=== PATIENT | male | born 1975 | race Caucasian/White ===

== ENCOUNTER 2019-02-01 22:06 | Emergency (ER) | payer MEDICARE ==
[2019-02-01] MEDS ORDERED: solu-MEDROL 125 MG IV ONE (22:44)
[2019-02-01] MEDS ORDERED: ROCEPHIN 1 Gm-D5w 50 ml Bag** 1 G/50 ML IVPB IV STA (22:44)
[2019-02-01] MEDS ORDERED: HYDROCODONE-ACETAMIN 2.5-108/5 ML SOLUTION PO STA (22:45)
[2019-02-01] MEDS ORDERED: HYDROCODONE-ACETAMIN 2.5-108/5 ML SOLUTION ONE (22:57)
[2019-02-01] MEDS ORDERED: ROCEPHIN 1 Gm-D5w 50 ml Bag** 1 G/50 ML IVPB IV ONE (22:57)
[2019-02-01 23:07] VITALS: PULSE 68; O2SAT 97
--- NOTE | 2019-02-01 23:23 | ERPHSYRPT ---
- History of Present Illness Time Seen by Provider: 02/01/19 22:35 Source: patient, EMS Exam Limitations: no limitations Patient Subjective Stated Complaint: pt to ER by EMS for SOB. pt off and on sick x 1 month. pt has been on abx. pt has cough, productive cough. Triage Nursing Assessment: pt to ER with complaints of SOB/cough. pt states he has been sick off and on x 1 month. currently finished abx last week. productive cough. Physician History: 43 y/o white male has had coughing sx for 6 weeks. pt states he has asthma and diabetes. he states he was dx with these after a sig exposure to black mold. pt is on daily inhalers. 3 weeks ago pt was seen by dr. pressley. he was placed on antibx and steroids but finished a week ago or so. sx worsening over last 2 to 3 days. pt does not recall which antibx he was on. Timing/Duration: week(s) (6) Cough Quality/Degree: mild, dry cough Possible Cause: frequent episodes, chronic episodes Modifying Factors: Improves With: albuterol inhaler, coughing Associated Symptoms: cough, No fever, No chills, No sore throat Allergies/Adverse Reactions: No Known Drug Allergies Allergy (Unverified 02/01/19 22:17) Home Medications: Albuterol Sulfate [Ventolin Hfa] 1 spray INTRANASAL DAILY 02/01/19 [History] Divalproex Sodium ER 250 mg [Depakote EXTENDED RELEASE 250 MG] 250 mg PO DAILY 02/01/19 [History] Metformin HCl Xr 500 mg [Glucophage XR 500 MG] 500 mg PO DAILY 02/01/19 [ History] PANTOPRAZOLE 40 mg Tablet [Protonix 40MG Tablet] 40 mg PO DAILY 02/01/19 [ History] Ranitidine HCl 150 mg PO DAILY 02/01/19 [History] Umeclidinium Brm/Vilanterol Tr [Anoro Ellipta 62.5-25 Mcg INH] 1 spray INTRANASAL DAILY 02/01/19 [History] Hx Tetanus, Diphtheria Vaccination/Date Given: No Hx Influenza Vaccination/Date Given: No Hx Pneumococcal Vaccination/Date Given: No Immunizations Up to Date: Yes - Review of Systems Constitutional: No Symptoms Eyes: No Symptoms Ears, Nose, & Throat: No Symptoms Respiratory: Cough Cardiac: No Symptoms, No Chest Pain, No Palpitations Abdominal/Gastrointestinal: No Symptoms, No Abdominal Pain, No Nausea, No Vomiting, No Diarrhea Genitourinary Symptoms: No Symptoms Musculoskeletal: No Symptoms Skin: No Symptoms Neurological: No Symptoms Psychological: No Symptoms Endocrine: No Symptoms Hematologic/Lymphatic: No Symptoms Immunological/Allergic: No Symptoms All Other Systems: Reviewed and Negative - Past Medical History Pertinent Past Medical History: Yes Neurological History: Seizures ENT History: No Pertinent History Cardiac History: No Pertinent History Respiratory History: Asthma Endocrine Medical History: Diabetes Type II Musculoskeletal History: No Pertinent History GI Medical History: No Pertinent History History: No Pertinent History Psycho-Social History: No Pertinent History Male Reproductive Disorders: No Pertinent History Other Medical History: marfans syndrome - Past Surgical History Past Surgical History: No Neuro Surgical History: No Pertinent History Cardiac: No Pertinent History Respiratory: No Pertinent History Gastrointestinal: No Pertinent History Genitourinary: No Pertinent History Musculoskeletal: No Pertinent History Male Surgical History: No Pertinent History - Social History Smoking Status: Never smoker Exposure to second hand smoke: Yes Drug Use: none Patient Lives Alone: Yes - Nursing Vital Signs Nursing Vital Signs: Initial Vital Signs Temperature 98.0 F 02/01/19 22:07 Pulse Rate 69 02/01/19 22:07 Respiratory Rate 19 02/01/19 22:07 Blood Pressure 139/83 02/01/19 22:07 O2 Sat by Pulse Oximetry 96 02/01/19 22:07 Pain Scale Pain Intensity 5 - Physical Exam General Appearance: no apparent distress, alert, anxiety Eye Exam: PERRL/EOMI Ears, Nose, Throat Exam: normal ENT inspection, moist mucous membranes Neck Exam: normal inspection, non-tender, supple, full range of motion Respiratory Exam: normal breath sounds, lungs clear, airway intact, No chest tenderness, No respiratory distress Cardiovascular Exam: regular rate/rhythm, normal heart sounds, normal peripheral pulses Gastrointestinal/Abdomen Exam: soft, normal bowel sounds, No tenderness Rectal Exam: not done Back Exam: normal inspection, normal range of motion, No CVA tenderness, No vertebral tenderness Extremity Exam: normal inspection, normal range of motion, pelvis stable Neurologic Exam: alert, oriented x 3, cooperative, 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, normal mood/affect, nml cerebellar function, nml station & gait Skin Exam: normal color, warm, dry Lymphatic Exam: No adenopathy SpO2 Interpretation: normal SpO2: 97 O2 Delivery: Room Air Ordered Tests: Active Orders 24 hr Category Date Time Status CHEST 1 VIEW (PORTABLE) Stat Exams 02/01/19 22:44 Taken Medication Summary Discontinued Medications Generic Name Dose Route Start Last Admin Trade Name Ilan PRN Reason Stop Dose Admin Hydrocodone Bitart/Acetaminophen 10 ml 02/01/19 22:45 02/01/19 22:58 Hydrocodone-Acetamin 2.5-108/5 Ml Solution PO 02/01/19 22:46 10 ml STAT STA Administration Hydrocodone Bitart/Acetaminophen Confirm 02/01/19 22:57 Hydrocodone-Acetamin 2.5-108/5 Ml Solution Administered 02/01/19 22:58 Dose 10 ml .ROUTE .STK-MED ONE Ceftriaxone Sodium/Dextrose 1 g in 50 mls @ 100 mls/hr 02/01/19 22:44 23:36 Rocephin 1 Gm-D5w 50 Ml Bag IV 02/01/19 23:13 Infused STAT STA Infusion Ceftriaxone Sodium/Dextrose Confirm 02/01/19 22:57 Rocephin 1 Gm-D5w 50 Ml Bag Administered 02/01/19 22:58 Dose 1 g in 50 mls @ ud IV .STK-MED ONE Methylprednisolone Sodium Succinate 125 mg 02/01/19 22:44 02/01/19 23:07 Solu-Medrol 125 Mg IV 02/01/19 22:45 Not Given STAT ONE - Progress Progress: improved Air Movement: good Progress Note: 02/01/19 23:43 cxr-no acute process Blood Culture(s) Obtained: No Antibiotics given: Yes Counseled pt/family regarding: diagnosis, need for follow-up, rad results - Departure Departure Disposition: Home Clinical Impression: Bronchitis Condition: Stable Critical Care Time: No Referrals: SHABBIR PRESSLEY MD [Primary Care Provider] - Additional Instructions: drink plenty of fluids. follow up with primary doctor for further management Prescriptions: Cefdinir 300 mg PO BID 7 Days #14 capsule Hydrocodone Bit/Acetaminophen [Hydrocodone-Acetaminophen Soln] 10 ml PO Q6H # 120 ml Prednisone 5 mg [Deltasone 5 mg] 5 mg PO TID #12 tablet
[2019-02-02 00:06] VITALS: BP 136/80
--- NOTE | 2019-02-02 09:22 | XRAY ---
Indication: Cough. Comparison: July 03, 2017. Portable chest again demonstrates normal heart and lungs. Bony thorax intact.
== END 2019-02-02 | disposition home or self-care (01) ==
LOC: ED 22:06
DX: J40 Bronchitis, not specified as acute or chronic (principal)
CPT/HCPCS: 36000; 71045; 96365; 99284; J0696; A9270-GY

== ENCOUNTER 2019-05-06 18:54 | Emergency (ER) | payer MEDICARE ==
[2019-05-06] MEDS ORDERED: Sodium Chloride 0.9% 1000 ML 1,000 ML ONE ×2 (19:05→19:40)
--- NOTE | 2019-05-06 19:33 | ERPHSYRPT ---
- History of Present Illness Time Seen by Provider: 05/06/19 19:15 Source: patient, EMS Exam Limitations: no limitations Patient Subjective Stated Complaint: "weakness in legs, dizziness" reported fall 10 min lpta. Triage Nursing Assessment: pt to ED by EMS c/o weakness, dizziness, shakiness, and fall 10 min lpta at home. denies hitting head, no LOC, no blood thinners. denies pain at this time. lung sounds clear and equal bilat, clear heart sounds , A&Ox3. ambulation weak for unknown amount of time, states worse tonight before fall. hx marfans syndrome, sees neurologist. pt has no other complaints at this time Physician History: This is a 43-year-old [id number] diabetic white male who has Marfan syndrome as well as seizure disorder. Today, the patient states that he was weak in the legs and actually fell. He denies fever. He woke up from a nap and felt that maybe his blood sugar was low although he did not get a value for it. Patient immediately drank orange juice. Patient did not hit his head. Patient denies chest pain he denies headache he denies abdominal pain. His primary concern is the weakness in both of his legs. Timing/Duration: today Severity: moderate Associated Symptoms: weakness (Primarily in bilateral lower extremities) Allergies/Adverse Reactions: No Known Drug Allergies Allergy (Verified 05/06/19 19:08) Home Medications: Albuterol Sulfate [Ventolin Hfa] 1 spray INTRANASAL DAILY 02/01/19 [History] Divalproex Sodium ER 250 mg [Depakote EXTENDED RELEASE 250 MG] 250 mg PO DAILY 02/01/19 [History] Metformin HCl Xr 500 mg [Glucophage XR 500 MG] 500 mg PO DAILY 02/01/19 [ History] PANTOPRAZOLE 40 mg Tablet [Protonix 40MG Tablet] 40 mg PO DAILY 02/01/19 [ History] Ranitidine HCl 150 mg PO DAILY 02/01/19 [History] Umeclidinium Brm/Vilanterol Tr [Anoro Ellipta 62.5-25 Mcg INH] 1 spray INTRANASAL DAILY 02/01/19 [History] Hx Tetanus, Diphtheria Vaccination/Date Given: No Hx Influenza Vaccination/Date Given: No Hx Pneumococcal Vaccination/Date Given: No Immunizations Up to Date: No - Review of Systems Constitutional: Weakness Eyes: No Symptoms Ears, Nose, & Throat: No Symptoms Respiratory: No Symptoms Cardiac: No Symptoms Abdominal/Gastrointestinal: No Symptoms Genitourinary Symptoms: No Symptoms Musculoskeletal: No Symptoms Skin: No Symptoms Neurological: Dizziness, Other (Bilateral lower extremity weakness) Endocrine: No Symptoms Hematologic/Lymphatic: No Symptoms Immunological/Allergic: No Symptoms All Other Systems: Reviewed and Negative - Past Medical History Pertinent Past Medical History: Yes Neurological History: Seizures ENT History: No Pertinent History Cardiac History: No Pertinent History Respiratory History: Asthma Endocrine Medical History: Diabetes Type II Musculoskeletal History: No Pertinent History GI Medical History: No Pertinent History History: No Pertinent History Psycho-Social History: No Pertinent History Male Reproductive Disorders: No Pertinent History Other Medical History: marfans syndrome - Past Surgical History Past Surgical History: No Neuro Surgical History: No Pertinent History Cardiac: No Pertinent History Respiratory: No Pertinent History Gastrointestinal: No Pertinent History Genitourinary: No Pertinent History Musculoskeletal: No Pertinent History Male Surgical History: No Pertinent History - Social History Smoking Status: Never smoker Exposure to second hand smoke: Yes Drug Use: none Patient Lives Alone: Yes - Nursing Vital Signs Nursing Vital Signs: Initial Vital Signs Temperature 97.8 F 05/06/19 18:59 Pain Scale Pain Intensity 0 - Physical Exam General Appearance: no apparent distress, alert, anxiety Eye Exam: PERRL/EOMI, eyes nml inspection Ears, Nose, Throat Exam: normal ENT inspection, moist mucous membranes Neck Exam: normal inspection, non-tender, supple, full range of motion Respiratory Exam: normal breath sounds, lungs clear, airway intact, No chest tenderness, No respiratory distress Cardiovascular Exam: regular rate/rhythm, normal heart sounds, normal peripheral pulses Gastrointestinal/Abdomen Exam: soft, normal bowel sounds, No tenderness Rectal Exam: not done Back Exam: normal inspection, normal range of motion, CVA tenderness Extremity Exam: normal inspection, normal range of motion, pelvis stable Neurologic Exam: alert, oriented x 3, cooperative, 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, normal mood/affect, nml cerebellar function, nml station & gait Skin Exam: normal color, warm, dry Lymphatic Exam: No adenopathy SpO2 Interpretation: normal O2 Delivery: Room Air - Course Nursing assessment & vital signs reviewed: Yes Ordered Tests: Active Orders 24 hr Category Date Time Status Business Systems Advisor STAT Care 05/06/19 19:35 Active IV Insertion STAT Care 05/06/19 19:34 Active Pulse Oximetry (ED) STAT Care 05/06/19 19:34 Active HEAD WITHOUT CONTRAST [CT] Stat Exams 05/06/19 19:35 Taken CBC W DIFF Stat Lab 05/06/19 20:00 Completed CMP Stat Lab 05/06/19 20:00 Completed MAGNESIUM Stat Lab 05/06/19 20:00 Completed Medication Summary Generic Name Dose Route Start Last Admin Trade Name Freq PRN Reason Stop Dose Admin Amoxicillin 500 mg 05/06/19 23:22 Amoxil 500 Mg PO 05/06/19 23:23 STAT ONE Discontinued Medications Generic Name Dose Route Start Last Admin Trade Name Freq PRN Reason Stop Dose Admin Sodium Chloride Confirm 05/06/19 19:05 Sodium Chloride 0.9% 1000 Ml Administered 05/06/19 19:06 Dose 1,000 mls @ ud .ROUTE .STK-MED ONE Sodium Chloride 1,000 mls @ 999 mls/hr 05/06/19 19:34 05/06/19 20:52 Sodium Chloride 0.9% 1000 Ml IV 05/06/19 20:34 Infused .Q1H1M STA Infusion Sodium Chloride Confirm 05/06/19 19:40 Sodium Chloride 0.9% 1000 Ml Administered 05/06/19 19:41 Dose 1,000 mls @ ud .ROUTE .STK-MED ONE Lab/Rad Data: Laboratory Result Diagrams 05/06/19 20:00 05/06/19 20:00 Laboratory Results 05/06/19 05/06/19 05/06/19 Range/Units 20:00 20:00 20:00 WBC (4.0-10.5) K/mm3 RBC (4.1-5.6) M/mm3 Hgb (12.5-18.0) gm/dl Hct (42-50) % MCV (78-100) fl MCH (26-32) pg MCHC (32-36) g/dl RDW (11.5-14.0) % Plt Count (150-450) K/mm3 MPV (7.5-11.0) fl Gran % (36.0-66.0) % Eos # (Auto) (0-0.5) Absolute Lymphs (auto) (1.0-4.6) Absolute Monos (auto) (0.0-1.3) Lymphocytes % (24.0-44.0) % Monocytes % (0.0-12.0) % Eosinophils % (0.00-5.0) % Basophils % (0.0-0.4) % Absolute Granulocytes (1.4-6.9) Basophils # (0-0.4) Sodium 138 (137-145) mmol/L Potassium 4.0 (3.5-5.1) mmol/L Chloride 101 (98-107) mmol/L Carbon Dioxide 29 (22-30) mmol/L Anion Gap 11.7 (5-15) MEQ/L BUN 18 (9-20) mg/dL Creatinine 1.05 (0.66-1.25) mg/dL Estimated GFR > 60.0 ML/MIN Glucose 290 H (74-106) mg/dL Hemoglobin A1c 11.22 H (4.5-6.0) % Calcium 8.8 (8.4-10.2) mg/dL Magnesium 2.1 (1.6-2.3) mg/dL Total Bilirubin 0.60 (0.2-1.3) mg/dL AST 33 (17-59) U/L ALT 40 (0-50) U/L Alkaline Phosphatase 133 H (38-126) U/L Serum Total Protein 7.4 (6.3-8.2) g/dL Albumin 4.2 (3.5-5.0) g/dL Valproic Acid < 10.0 L (50-100) ug/mL 05/06/19 Range/Units 20:00 WBC 5.8 (4.0-10.5) K/mm3 RBC 4.85 (4.1-5.6) M/mm3 Hgb 14.8 (12.5-18.0) gm/dl Hct 44.2 (42-50) % MCV 91.1 (78-100) fl MCH 30.5 (26-32) pg MCHC 33.5 (32-36) g/dl RDW 12.6 (11.5-14.0) % Plt Count 254 (150-450) K/mm3 MPV 10.9 (7.5-11.0) fl Gran % 55.7 (36.0-66.0) % Eos # (Auto) 0.10 (0-0.5) Absolute Lymphs (auto) 1.96 (1.0-4.6) Absolute Monos (auto) 0.45 (0.0-1.3) Lymphocytes % 33.9 (24.0-44.0) % Monocytes % 7.8 (0.0-12.0) % Eosinophils % 1.7 (0.00-5.0) % Basophils % 0.9 (0.0-0.4) % Absolute Granulocytes 3.22 (1.4-6.9) Basophils # 0.05 (0-0.4) Sodium (137-145) mmol/L Potassium (3.5-5.1) mmol/L Chloride (98-107) mmol/L Carbon Dioxide (22-30) mmol/L Anion Gap (5-15) MEQ/L BUN (9-20) mg/dL Creatinine (0.66-1.25) mg/dL Estimated GFR ML/MIN Glucose (74-106) mg/dL Hemoglobin A1c (4.5-6.0) % Calcium (8.4-10.2) mg/dL Magnesium (1.6-2.3) mg/dL Total Bilirubin (0.2-1.3) mg/dL AST (17-59) U/L ALT (0-50) U/L Alkaline Phosphatase (38-126) U/L Serum Total Protein (6.3-8.2) g/dL Albumin (3.5-5.0) g/dL Valproic Acid (50-100) ug/mL - Progress Progress: unchanged Progress Note: 05/06/19 23:24 CAT scan of the head reveals no acute intracranial process. Patient does have evidence of bilateral sinus disease Counseled pt/family regarding: lab results, diagnosis, need for follow-up, rad results - Departure Departure Disposition: Home Clinical Impression: Leg weakness, Sinusitis Condition: Stable Critical Care Time: No Referrals: SHABBIR PRESSLEY MD [Primary Care Provider] - Additional Instructions: Take all your medication as prescribed. Follow-up with your neurologist tomorrow by phone to discuss your leg weakness and your low valproic acid level and to arrange a follow-up appointment. Follow-up with your primary care provider to let them know your hemoglobin A1c was just over 11 Prescriptions: Amoxicillin 500 mg Cap [Amoxil 500 mg] 500 mg PO TID #30 capsule
[2019-05-06] MEDS ORDERED: Sodium Chloride 0.9% 1000 ML 1,000 ML IV STA (19:34)
[2019-05-06 20:19] LABS: Absolute Neutrophil Ct (ANC) 3.22 (1.4-6.9); BASOPHIL % 0.9 % (0.0-0.4); Basophil (Absolute #) 0.05 (0-0.4); Eosinophil % 1.7 % (0.00-5.0); Hematocrit 44.2 % (42-50); Hemoglobin 14.8 gm/dl (12.5-18.0); Lymphocyte (Absolute #) 1.96 (1.0-4.6); Lymphocytes % 33.9 % (24.0-44.0); Mean Cell Volume 91.1 fl (78-100); Mean Corpuscular Hemoglobin 30.5 pg (26-32); Mean Corpuscular Hgb Concent. 33.5 g/dl (32-36); Mean Platelet Volume 10.9 fl (7.5-11.0); Monocyte (Absolute #) 0.45 (0.0-1.3); Monocytes % 7.8 % (0.0-12.0); Neutrophil % 55.7 % (36.0-66.0); Platelet Count 254 K/mm3 (150-450); Red Blood Count 4.85 M/mm3 (4.1-5.6); Red Cell Distribution Width 12.6 % (11.5-14.0); White Blood Count 5.8 K/mm3 (4.0-10.5)
[2019-05-06 20:21] LABS: ALBUMIN 4.2 g/dL (3.5-5.0); ALKALINE PHOSPHATASE 133 U/L (38-126); ANION GAP 11.7 MEQ/L (5-15); BLOOD UREA NITROGEN 18 mg/dL (9-20); CHLORIDE 101 mmol/L (98-107); Calcium 8.8 mg/dL (8.4-10.2); Carbon Dioxide 29 mmol/L (22-30); Creatinine 1 1.05 mg/dL (0.66-1.25); Glucose 290 mg/dL (74-106); MAGNESIUM 2.1 mg/dL (1.6-2.3); SGOT/AST 33 U/L (17-59); SGPT/ALT 40 U/L (0-50); SODIUM 138 mmol/L (137-145); Total Protein 7.4 g/dL (6.3-8.2)
[2019-05-06] MEDS ORDERED: AMOXIL 500 MG PO ONE (23:22)
[2019-05-06] MEDS ORDERED: AMOXIL 500 MG ONE (23:30)
[2019-05-06 23:41] VITALS: BP 126/95; PULSE 67; O2SAT 97
--- NOTE | 2019-05-07 09:02 | XRAY ---
Exam: CT of the head without IV contrast from 05/06/2019. CTDI: 53.92 mGy. Comparison: None. Indication: 44-year-old male fell and has bilateral lower extremity weakness. Technique: Non-IV contrast axial images were obtained through the brain. Reconstructed coronal and sagittal images were created and reviewed. Findings: The ventricles appear of normal size and configuration. No focal mass effect or midline shift is seen. I see no evidence of acute intracranial bleed or abnormal extra-axial fluid collection. The valderrama matter-white matter interfaces appear unremarkable. No low attenuation territorial infarct is seen. The cortical sulci and basilar cisterns appear unremarkable. The calvarium of the skull appears intact. A couple lobular soft tissue densities are seen at the inferior margin of the right maxillary sinus which likely represent retention cysts or polyps. I also note some mild scattered mucosal thickening within the maxillary sinuses, right slightly greater than left. No air-fluid levels are seen. The remainder of the paranasal sinuses appears unremarkable. The globes of each eye and orbital contents appear unremarkable. Mastoid air cells appear clear. No gross abnormality of the middle ear cavities is seen. Impression: 1. Mild chronic bilateral maxillary sinus disease, right greater than left. No air-fluid levels are seen. 2. No acute intracranial bleed or other acute intracranial process is seen.
== END 2019-05-06 23:41 | disposition home or self-care (01) ==
LOC: ED 18:54
DX: M62.81 Muscle weakness (generalized) (principal); J32.9 Chronic sinusitis, unspecified; E11.9 Type 2 diabetes mellitus without complications; Z79.4 Long term (current) use of insulin; Z79.899 Other long term (current) drug therapy
CPT/HCPCS: 36000; 36415; 70450; 80053; 80164; 83036; 83735; 85025; 93041; 94760; 96360; 99284; A9270-GY

== ENCOUNTER 2019-06-13 18:45 | Emergency (ER) | payer MEDICARE ==
[2019-06-13] MEDS ORDERED: Sodium Chloride 0.9% 1000 ML 1,000 ML IV STA (19:04)
--- NOTE | 2019-06-13 19:13 | ERPHSYRPT ---
- History of Present Illness Time Seen by Provider: 06/13/19 19:04 Source: patient, EMS Exam Limitations: no limitations Patient Subjective Stated Complaint: Pt had a seizure and was found on the ground, pt had a tonic clonic seizure today, last seizure approx 1 month ago Triage Nursing Assessment: Pt brought in by EMS, pt found laying on the ground, vitals wnl, pt appears normal at this time, answers questions correctly, no difficulties with strength, no difficulties with speech, rates pain in his chest as 5/10 Physician History: 44yo male with hx of SZ and heart rhythm issues presents via EMS for SZ activity. Was found on ground. No incontinence or tongue biting. Positive postictal state. Also c/o CP which has been recurrent for him lately. Waiting for holter monitor via mail to wear. Also waiting to see intensive care medicine specialist. Apparently his HR goes too low. No c/o pain at this time. he said he knew he was going to have SZ so he went to the restroom to urinate because he hates to be incontinent with a SZ event. Last Sz was one month ago. Compliant with Keppra but states it usually "li right through me" Stress is usually the cause of his SZ. Denies any recent fever or illness prior to this event. Timing/Duration: today Severity: severe Character of Deficits: none Deficits: no difficulties Baseline/Normal Cognition: alert oriented x 3 Current Cognition: alert oriented x 3 Baseline Gait: walks w/o assistance Associated Symptoms: confusion, seizures Allergies/Adverse Reactions: No Known Drug Allergies Allergy (Verified 06/13/19 18:59) Home Medications: Albuterol Sulfate [Ventolin Hfa] 1 spray INTRANASAL DAILY 02/01/19 [History] Divalproex Sodium ER 250 mg [Depakote EXTENDED RELEASE 250 MG] 250 mg PO DAILY 02/01/19 [History] Metformin HCl Xr 500 mg [Glucophage XR 500 MG] 500 mg PO DAILY 02/01/19 [ History] PANTOPRAZOLE 40 mg Tablet [Protonix 40MG Tablet] 40 mg PO DAILY 02/01/19 [ History] Ranitidine HCl 150 mg PO DAILY 02/01/19 [History] Umeclidinium Brm/Vilanterol Tr [Anoro Ellipta 62.5-25 Mcg INH] 1 spray INTRANASAL DAILY 02/01/19 [History] Hx Tetanus, Diphtheria Vaccination/Date Given: No Hx Influenza Vaccination/Date Given: No Hx Pneumococcal Vaccination/Date Given: No Travel Risk - International Travel Have you traveled outside of the country in past 3 weeks: No Have you or anyone close to you been diagnosed with or: No Do your reside in a community with a known COVID-19 case?: Yes If Yes where:: [place] - Coronavirus Screening Has patient experienced Coronavirus symptoms: No - Review of Systems Constitutional: No Fever, No Chills Eyes: No Symptoms Ears, Nose, & Throat: No Symptoms Respiratory: No Cough, No Dyspnea Cardiac: Chest Pain, Palpitations, No Edema, No Syncope, No Orthopnea, No PND Abdominal/Gastrointestinal: No Abdominal Pain, No Nausea, No Vomiting, No Diarrhea Genitourinary Symptoms: No Dysuria Musculoskeletal: No Back Pain, No Neck Pain Skin: No Rash Neurological: Seizure, No Dizziness, No Focal Weakness, No Sensory Changes Psychological: No Symptoms Endocrine: No Symptoms All Other Systems: Reviewed and Negative - Past Medical History Pertinent Past Medical History: Yes Neurological History: Seizures ENT History: No Pertinent History Cardiac History: No Pertinent History Respiratory History: Asthma Endocrine Medical History: Diabetes Type II Musculoskeletal History: No Pertinent History GI Medical History: No Pertinent History History: No Pertinent History Psycho-Social History: No Pertinent History Male Reproductive Disorders: No Pertinent History Other Medical History: marfans syndrome - Past Surgical History Past Surgical History: No Neuro Surgical History: No Pertinent History Cardiac: No Pertinent History Respiratory: No Pertinent History Gastrointestinal: No Pertinent History Genitourinary: No Pertinent History Musculoskeletal: No Pertinent History Male Surgical History: No Pertinent History - Social History Smoking Status: Former smoker Exposure to second hand smoke: No Drug Use: none Patient Lives Alone: Yes - Nursing Vital Signs Nursing Vital Signs: Initial Vital Signs Temperature 99.4 F 06/13/19 18:47 Pulse Rate 92 H 06/13/19 18:47 Blood Pressure 120/88 06/13/19 18:47 O2 Sat by Pulse Oximetry 97 06/13/19 18:47 Pain Scale Pain Intensity 7 - [place] Coma Scale Best Eye Response (Anna): (4) open spontaneously Best Verbal Response (Anna): (5) oriented Best Motor Response (Anna): (6) obeys commands [place] Total: 15 - Physical Exam General Appearance: no apparent distress, alert Eye Exam: bilateral eye: PERRL, EOMI Ears, Nose, Throat Exam: normal ENT inspection, moist mucous membranes Neck Exam: normal inspection, non-tender, supple Respiratory: normal breath sounds, lungs clear, airway intact, No respiratory distress Cardiovascular: regular rate/rhythm, No edema Gastrointestinal: soft, No tenderness, No distention Back Exam: normal inspection Extremity Exam: normal inspection, No pedal edema Mental Status: alert, oriented x 3 programmer developer Exam: tongue midline Coordination/Gait: normal finger to nose, normal gait Skin Exam: normal color, warm, dry, No rash SpO2: 97 - Course Nursing assessment & vital signs reviewed: Yes EKG Interpreted by Me: Sinus Rhythm, Non-specific ST Changes - Radiology Exams Chest X-ray Interpretation: Reviewed by me, Negative Ordered Tests: Active Orders 24 hr Category Date Time Status EKG-ER Only STAT Care 06/13/19 19:04 Active IV Insertion STAT Care 06/13/19 19:04 Active CHEST 1 VIEW (PORTABLE) Stat Exams 06/13/19 19:05 Taken CBC W DIFF Stat Lab 06/13/19 19:22 Completed CMP Stat Lab 06/13/19 19:22 Completed ETHYL ALCOHOL Stat Lab 06/13/19 19:22 Completed TROPONIN Stat Lab 06/13/19 19:22 Completed UA W/RFX UR CULTURE Stat Lab 06/13/19 19:59 Completed Urine Triage Profile Stat Lab 06/13/19 19:59 Completed Medication Summary Discontinued Medications Generic Name Dose Route Start Last Admin Trade Name Ilan PRN Reason Stop Dose Admin Sodium Chloride 1,000 mls @ 999 mls/hr 06/13/19 19:04 06/13/19 19:27 Sodium Chloride 0.9% 1000 Ml IV 06/13/19 20:04 999 mls/hr .Q1H1M STA Administration Sodium Chloride Confirm 06/13/19 19:24 Sodium Chloride 0.9% 1000 Ml Administered 06/13/19 19:25 Dose 1,000 mls @ ud .ROUTE .STK-MED ONE Lab/Rad Data: Laboratory Result Diagrams 06/13/19 19:22 06/13/19 19:22 Laboratory Results 06/13/19 06/13/19 06/13/19 Range/Units 19:59 19:59 19:22 WBC (4.0-10.5) K/mm3 RBC (4.1-5.6) M/mm3 Hgb (12.5-18.0) gm/dl Hct (42-50) % MCV (78-100) fl MCH (26-32) pg MCHC (32-36) g/dl RDW (11.5-14.0) % Plt Count (150-450) K/mm3 MPV (7.5-11.0) fl Gran % (36.0-66.0) % Eos # (Auto) (0-0.5) Absolute Lymphs (auto) (1.0-4.6) Absolute Monos (auto) (0.0-1.3) Lymphocytes % (24.0-44.0) % Monocytes % (0.0-12.0) % Eosinophils % (0.00-5.0) % Basophils % (0.0-0.4) % Absolute Granulocytes (1.4-6.9) Basophils # (0-0.4) Sodium (137-145) mmol/L Potassium (3.5-5.1) mmol/L Chloride (98-107) mmol/L Carbon Dioxide (22-30) mmol/L Anion Gap (5-15) MEQ/L BUN (9-20) mg/dL Creatinine (0.66-1.25) mg/dL Estimated GFR ML/MIN Glucose (74-106) mg/dL Calcium (8.4-10.2) mg/dL Total Bilirubin (0.2-1.3) mg/dL AST (17-59) U/L ALT (0-50) U/L Alkaline Phosphatase (38-126) U/L Troponin I (0.000-0.034) ng/mL Serum Total Protein (6.3-8.2) g/dL Albumin (3.5-5.0) g/dL Urine Color YELLOW (YELLOW) Urine Appearance CLEAR (CLEAR) Urine pH 6.0 (5-6) Ur Specific [place] 1.012 (1.005-1.025) Urine Protein NEGATIVE (Negative) Urine Ketones NEGATIVE (NEGATIVE) Urine Blood NEGATIVE (0-5) Catarino/ul Urine Nitrite NEGATIVE (NEGATIVE) Urine Bilirubin NEGATIVE (NEGATIVE) Urine Urobilinogen NEGATIVE (0-1) mg/dL Ur Leukocyte Esterase NEGATIVE (NEGATIVE) Urine WBC (Auto) NONE (0-5) /HPF Urine RBC (Auto) NONE SEEN (0-2) /HPF U Epithel Cells (Auto) NONE (FEW) /HPF Urine Bacteria (Auto) NONE SEEN (NEGATIVE) /HPF Urine Mucus (Auto) SLIGHT (NEGATIVE) /HPF Urine Culture Reflexed NO (NO) Urine Glucose NEGATIVE (NEGATIVE) mg/dL Urine Opiates Level NEGATIVE (NEGATIVE) Ur Methadone NEGATIVE (NEGATIVE) Urine Barbiturates NEGATIVE (NEGATIVE) Ur Phencyclidine (PCP) NEGATIVE (NEGATIVE) Urine Amphetamine NEGATIVE (NEGATIVE) U Benzodiazepine Level NEGATIVE (NEGATIVE) Urine Cocaine NEGATIVE (NEGATIVE) Urine Marijuana (THC) NEGATIVE (NEGATIVE) Ethyl Alcohol < 10 (0-10) mg/dL 06/13/19 06/13/19 06/13/19 Range/Units 19:22 19:22 19:22 WBC 6.8 (4.0-10.5) K/mm3 RBC 4.85 (4.1-5.6) M/mm3 Hgb 15.0 (12.5-18.0) gm/dl Hct 43.2 (42-50) % MCV 89.1 (78-100) fl MCH 30.9 (26-32) pg MCHC 34.7 (32-36) g/dl RDW 12.5 (11.5-14.0) % Plt Count 193 (150-450) K/mm3 MPV 10.0 (7.5-11.0) fl Gran % 47.5 (36.0-66.0) % Eos # (Auto) 0.04 (0-0.5) Absolute Lymphs (auto) 2.96 (1.0-4.6) Absolute Monos (auto) 0.51 (0.0-1.3) Lymphocytes % 43.5 (24.0-44.0) % Monocytes % 7.5 (0.0-12.0) % Eosinophils % 0.6 (0.00-5.0) % Basophils % 0.9 (0.0-0.4) % Absolute Granulocytes 3.23 (1.4-6.9) Basophils # 0.06 (0-0.4) Sodium 142 (137-145) mmol/L Potassium 3.6 (3.5-5.1) mmol/L Chloride 99 (98-107) mmol/L Carbon Dioxide 31 H (22-30) mmol/L Anion Gap 16.6 H (5-15) MEQ/L BUN 17 (9-20) mg/dL Creatinine 1.30 H (0.66-1.25) mg/dL Estimated GFR > 60.0 ML/MIN Glucose 143 H (74-106) mg/dL Calcium 10.0 (8.4-10.2) mg/dL Total Bilirubin 0.70 (0.2-1.3) mg/dL AST 39 (17-59) U/L ALT 36 (0-50) U/L Alkaline Phosphatase 79 (38-126) U/L Troponin I < 0.012 (0.000-0.034) ng/mL Serum Total Protein 8.0 (6.3-8.2) g/dL Albumin 4.8 (3.5-5.0) g/dL Urine Color (YELLOW) Urine Appearance (CLEAR) Urine pH (5-6) Ur Specific [place] (1.005-1.025) Urine Protein (Negative) Urine Ketones (NEGATIVE) Urine Blood (0-5) Catarino/ul Urine Nitrite (NEGATIVE) Urine Bilirubin (NEGATIVE) Urine Urobilinogen (0-1) mg/dL Ur Leukocyte Esterase (NEGATIVE) Urine WBC (Auto) (0-5) /HPF Urine RBC (Auto) (0-2) /HPF U Epithel Cells (Auto) (FEW) /HPF Urine Bacteria (Auto) (NEGATIVE) /HPF Urine Mucus (Auto) (NEGATIVE) /HPF Urine Culture Reflexed (NO) Urine Glucose (NEGATIVE) mg/dL Urine Opiates Level (NEGATIVE) Ur Methadone (NEGATIVE) Urine Barbiturates (NEGATIVE) Ur Phencyclidine (PCP) (NEGATIVE) Urine Amphetamine (NEGATIVE) U Benzodiazepine Level (NEGATIVE) Urine Cocaine (NEGATIVE) Urine Marijuana (THC) (NEGATIVE) Ethyl Alcohol (0-10) mg/dL - Progress Progress: improved Progress Note: 06/13/19 20:32 Pt stable. work up for possible causes for his SZ. For the most part, I could not find any source but he finally did admit to not being able to sleep last night due to worrying about his CP. No alcohol or drug use. He was not much help in terms of how he is treated for breakthrough Szs in the past. Will not get keppra level back today. He is okay with 500mg keppra IV dose. Will give toradol for his CP for it seems more muscular since it worsens with movement. No other sxs though like SOB , diaphoresis or coughs. Will advise close follow up and to continue his home meds. Also advised sleep and rest. Counseled pt/family regarding: lab results, diagnosis, need for follow-up - Departure Departure Disposition: Home Clinical Impression: Breakthrough seizure Condition: Stable Critical Care Time: No Referrals: SHABBIR PRESSLEY MD [Primary Care Provider] - Follow Up with PCP/3 days Instructions: Seizures, Adult (DC) Additional Instructions: Monitor symptoms closely. Proper sleep and rest. Continue with home meds. Follow up with PCP for further care. Return to ER if worse.
[2019-06-13] MEDS ORDERED: Sodium Chloride 0.9% 1000 ML 1,000 ML ONE (19:24)
[2019-06-13 19:26] LABS: Absolute Neutrophil Ct (ANC) 3.23 (1.4-6.9); BASOPHIL % 0.9 % (0.0-0.4); Basophil (Absolute #) 0.06 (0-0.4); Eosinophil % 0.6 % (0.00-5.0); Eosinophil (Absolute #) 0.04 (0-0.5); Hematocrit 43.2 % (42-50); Lymphocyte (Absolute #) 2.96 (1.0-4.6); Lymphocytes % 43.5 % (24.0-44.0); Mean Cell Volume 89.1 fl (78-100); Mean Corpuscular Hemoglobin 30.9 pg (26-32); Mean Corpuscular Hgb Concent. 34.7 g/dl (32-36); Monocyte (Absolute #) 0.51 (0.0-1.3); Monocytes % 7.5 % (0.0-12.0); Neutrophil % 47.5 % (36.0-66.0); Platelet Count 193 K/mm3 (150-450); Red Blood Count 4.85 M/mm3 (4.1-5.6); Red Cell Distribution Width 12.5 % (11.5-14.0); White Blood Count 6.8 K/mm3 (4.0-10.5)
[2019-06-13 19:42] LABS: ALBUMIN 4.8 g/dL (3.5-5.0); ALKALINE PHOSPHATASE 79 U/L (38-126); ANION GAP 16.6 MEQ/L (5-15); BLOOD UREA NITROGEN 17 mg/dL (9-20); CHLORIDE 99 mmol/L (98-107); Carbon Dioxide 31 mmol/L (22-30); Glucose 143 mg/dL (74-106); Potassium 3.6 mmol/L (3.5-5.1); SGOT/AST 39 U/L (17-59); SGPT/ALT 36 U/L (0-50); SODIUM 142 mmol/L (137-145)
[2019-06-13 19:58] VITALS: PULSE 79; O2SAT 97
[2019-06-13 20:04] LABS: Appearance CLEAR (CLEAR); Bilirubin NEGATIVE (NEGATIVE); Blood NEGATIVE Ery/ul (0-5); Glucose NEGATIVE (NEGATIVE); Ketones NEGATIVE (NEGATIVE); Leukocyte Esterase NEGATIVE (NEGATIVE); Mucus SLIGHT /HPF (NEGATIVE); Nitrite NEGATIVE (NEGATIVE); Protein,Urine Dip NEGATIVE (Negative); Specific Gravity 1.012 (1.005-1.025); Urobilinogen NEGATIVE mg/dL (0-1)
[2019-06-13 20:12] LABS: Bacteria NONE SEEN /HPF (NEGATIVE); RBC NONE SEEN /HPF (0-2)
[2019-06-13 20:19] LABS: Amphetamine,Urine NEGATIVE (NEGATIVE); Barbiturate,Urine NEGATIVE (NEGATIVE); Benzodiazepine,Urine NEGATIVE (NEGATIVE); Cocaine,Urine NEGATIVE (NEGATIVE); Methadone,Urine NEGATIVE (NEGATIVE); Opiate,Urine NEGATIVE (NEGATIVE); PCP,Urine NEGATIVE (NEGATIVE); THC,Urine NEGATIVE (NEGATIVE)
[2019-06-13] MEDS ORDERED: TORAdol 30 mg Injection IV ONE (20:31)
[2019-06-13] MEDS ORDERED: Keppra 500 MG/5 ML*** 500 MG in D5w 100ML Mini Bag 100 ML 100 ML IV ONE (20:32)
[2019-06-13] MEDS ORDERED: TORAdol 30 mg Injection ONE (20:37)
[2019-06-13] MEDS ORDERED: Keppra 500 MG/5 ML ONE (20:37)
[2019-06-13] MEDS ORDERED: D5w 100ML Mini Bag 100 ML 100 ML IV ONE (20:38)
--- NOTE | 2019-06-13 21:05 | XRAY ---
Indication: Chest pain. Comparison: February 01, 2019. Portable chest again demonstrates normal heart and lungs. Bony thorax intact with old left clavicle fracture.
[2019-06-13 21:06] VITALS: BP 138/71
== END 2019-06-13 21:25 | disposition home or self-care (01) ==
LOC: ED 18:45
DX: G40.89 Other seizures (principal); E11.9 Type 2 diabetes mellitus without complications; J45.909 Unspecified asthma, uncomplicated; Z79.4 Long term (current) use of insulin; Z79.899 Other long term (current) drug therapy
CPT/HCPCS: 36000; 36415; 71045; 80053; 80177; 80307; 81001; 84484; 85025; 93005; 96360; 96365; 96374; 99284; G0480; J1885; J1953

== ENCOUNTER 2019-12-19 21:50 | Emergency (ER) | payer MEDICARE ==
--- NOTE | 2019-12-19 22:17 | ERPHSYRPT ---
- History of Present Illness Time Seen by Provider: 12/19/19 22:13 Historian: patient Exam Limitations: no limitations Physician History: pt developed abd pain N and rectal bleeding filling the toilet, without much localized rectal pain today. no dizziness, no blood thinners, - prior hx polyps removed and colitis untreated. abd mild diffuse tenderness without peritoneal signs - discussed risk and benefit of CT and pt wishes to proceed. Timing/Duration: today Activities at Onset: none Quality: cramping, fullness, pressure Abdominal Pain Onset Location: generalized abdomen Pain Radiation: no radiation Severity of Pain-Max: moderate Severity of Pain-Current: moderate Modifying Factors: Improves With: nothing Associated Symptoms: nausea Previous symptoms: no prior history Allergies/Adverse Reactions: No Known Drug Allergies Allergy (Verified 12/19/19 22:15) Home Medications: Albuterol Sulfate [Ventolin Hfa] 1 spray INTRANASAL DAILY 02/01/19 [History] Metformin HCl Xr 500 mg [Glucophage XR 500 MG] 500 mg PO DAILY 02/01/19 [History] PANTOPRAZOLE 40 mg Tablet [Protonix 40MG Tablet] 40 mg PO DAILY 02/01/19 [History] Ranitidine HCl 150 mg PO DAILY 02/01/19 [History] Umeclidinium Brm/Vilanterol Tr [Anoro Ellipta 62.5-25 Mcg INH] 1 spray INTRANASAL DAILY 02/01/19 [History] Amlodipine Besylate 2.5 mg PO DAILY 12/19/19 [History] Empagliflozin [Jardiance] 25 mg PO DAILY 12/19/19 [History] Rosuvastatin Calcium 20 mg PO HS 12/19/19 [History] levETIRAcetam [Levetiracetam] 750 mg PO BID 12/19/19 [History] Hx Tetanus, Diphtheria Vaccination/Date Given: No Hx Influenza Vaccination/Date Given: No Hx Pneumococcal Vaccination/Date Given: No - Review of Systems Constitutional: No Fever, No Chills Eyes: No Symptoms Ears, Nose, & Throat: No Symptoms Respiratory: No Cough, No Dyspnea Cardiac: No Chest Pain, No Edema, No Syncope Abdominal/Gastrointestinal: Abdominal Pain, Nausea, Hematochezia, Appetite Changes, No Vomiting, No Diarrhea Genitourinary Symptoms: No Dysuria Musculoskeletal: No Back Pain, No Neck Pain Skin: No Symptoms, No Rash Neurological: No Dizziness, No Focal Weakness, No Sensory Changes Psychological: No Symptoms Endocrine: No Symptoms Hematologic/Lymphatic: No Symptoms Immunological/Allergic: No Symptoms All Other Systems: Reviewed and Negative - Past Medical History Pertinent Past Medical History: Yes Neurological History: Seizures ENT History: No Pertinent History Cardiac History: No Pertinent History Respiratory History: Asthma Endocrine Medical History: Diabetes Type II Musculoskeletal History: No Pertinent History GI Medical History: No Pertinent History History: No Pertinent History Psycho-Social History: No Pertinent History Male Reproductive Disorders: No Pertinent History Other Medical History: marfans syndrome - Past Surgical History Past Surgical History: No Neuro Surgical History: No Pertinent History Cardiac: No Pertinent History Respiratory: No Pertinent History Gastrointestinal: No Pertinent History Genitourinary: No Pertinent History Musculoskeletal: No Pertinent History Male Surgical History: No Pertinent History - Social History Smoking Status: Former smoker Exposure to second hand smoke: No Drug Use: none Patient Lives Alone: Yes - Nursing Vital Signs Nursing Vital Signs: Initial Vital Signs Temperature 98.5 F 12/19/19 21:51 Pulse Rate 70 12/19/19 21:51 Respiratory Rate 18 12/19/19 21:51 Blood Pressure 142/95 12/19/19 21:51 O2 Sat by Pulse Oximetry 97 12/19/19 21:51 Pain Scale Pain Intensity 5 - Physical Exam General Appearance: no apparent distress, alert Eye Exam: PERRL/EOMI, eyes nml inspection Ears, Nose, Throat Exam: normal ENT inspection, pharynx normal, moist mucous membranes Neck Exam: normal inspection, non-tender, supple, full range of motion Respiratory Exam: normal breath sounds, lungs clear, No respiratory distress Cardiovascular Exam: regular rate/rhythm, normal heart sounds Gastrointestinal/Abdomen Exam: soft, tenderness (mild diffuse ), No mass, No guarding, No pulsatile mass, No rebound Rectal Exam: normal rectal tone, blood, No hemorrhoids Back Exam: normal inspection, normal range of motion, No CVA tenderness, No vertebral tenderness Extremity Exam: normal inspection, normal range of motion, pelvis stable Neurologic Exam: alert, oriented x 3, cooperative, normal mood/affect, nml cerebellar function, sensation nml, No motor deficits Skin Exam: normal color, warm, dry SpO2 Interpretation: normal SpO2: 97 O2 Delivery: Room Air - Course Nursing assessment & vital signs reviewed: Yes - CT Exams Abdomen/Pelvis CT Interpretation: Tele-radiologist Report, Normal Appendix, Other (no mucosal thickening) Ordered Tests: Active Orders 24 hr Category Date Time Status ABDOMEN AND PELVIS W/0 CONTRAS [CT] Stat Exams 12/19/19 22:18 Taken CBC W DIFF Stat Lab 12/19/19 22:30 Completed CMP Stat Lab 12/19/19 22:30 Completed LIPASE Stat Lab 12/19/19 22:30 Completed Lactic Acid Stat Lab 12/19/19 22:56 Completed UA W/RFX UR CULTURE Stat Lab 12/19/19 22:18 Uncollected Lab/Rad Data: Laboratory Result Diagrams 12/19/19 22:30 12/19/19 22:30 Laboratory Results 12/19/19 12/19/19 12/19/19 Range/Units 22:56 22:30 22:30 WBC 6.1 (4.0-10.5) K/mm3 RBC 5.23 (4.1-5.6) M/mm3 Hgb 16.0 (12.5-18.0) gm/dl Hct 48.0 (42-50) % MCV 91.8 (78-100) fl MCH 30.6 (26-32) pg MCHC 33.3 (32-36) g/dl RDW 12.7 (11.5-14.0) % Plt Count 220 (150-450) K/mm3 MPV 10.3 (7.5-11.0) fl Gran % 50.1 (36.0-66.0) % Eos # (Auto) 0.10 (0-0.5) Absolute Lymphs (auto) 2.47 (1.0-4.6) Absolute Monos (auto) 0.41 (0.0-1.3) Lymphocytes % 40.6 (24.0-44.0) % Monocytes % 6.7 (0.0-12.0) % Eosinophils % 1.6 (0.00-5.0) % Basophils % 1.0 (0.0-0.4) % Absolute Granulocytes 3.04 (1.4-6.9) Basophils # 0.06 (0-0.4) Sodium 137 (137-145) mmol/L Potassium 3.7 (3.5-5.1) mmol/L Chloride 102 (98-107) mmol/L Carbon Dioxide 28 (22-30) mmol/L Anion Gap 10.9 (5-15) MEQ/L BUN 20 (9-20) mg/dL Creatinine 1.29 H (0.66-1.25) mg/dL Estimated GFR > 60.0 ML/MIN Glucose 237 H (74-106) mg/dL Lactic Acid 1.3 (0.4-2.0) Calcium 9.8 (8.4-10.2) mg/dL Total Bilirubin 0.40 (0.2-1.3) mg/dL AST 40 (17-59) U/L ALT 37 (0-50) U/L Alkaline Phosphatase 76 (38-126) U/L Serum Total Protein 7.2 (6.3-8.2) g/dL Albumin 4.3 (3.5-5.0) g/dL Lipase 133 (23-300) U/L - Progress Progress: improved, re-examined Progress Note: 12/19/19 23:38 advised pt that we haVE NOT DETERMINED THE SOURCE FOR HIS SYMPTOMS AND HE NEEDS to see his PCP for further workup , including scoping and to return meantime if further bleeding or dizzy or other symptoms . 12/19/19 23:39 he prefers this to admission for obs at this time and has the capacity to make this choice. Counseled pt/family regarding: lab results, diagnosis, need for follow-up, rad results - Departure Departure Disposition: Home Clinical Impression: Rectal bleeding Condition: Good Critical Care Time: No Referrals: SHABBIR PRESSLEY MD [Primary Care Provider] - Instructions: Gastrointestinal Bleeding (DC), Bloody Stools, Adult (DC) Additional Instructions: followup with your dr to repeat colonoscopy and workup- we have not found the source fo r the bleeding . return meantime if any dizziness or furhter bleeding or other concerns. followup with your dr also to recheck your blood pressure which was a little elevated.
[2019-12-19 22:48] LABS: Absolute Neutrophil Ct (ANC) 3.04 (1.4-6.9); Basophil (Absolute #) 0.06 (0-0.4); Eosinophil % 1.6 % (0.00-5.0); Lymphocyte (Absolute #) 2.47 (1.0-4.6); Lymphocytes % 40.6 % (24.0-44.0); Mean Cell Volume 91.8 fl (78-100); Mean Corpuscular Hemoglobin 30.6 pg (26-32); Mean Corpuscular Hgb Concent. 33.3 g/dl (32-36); Mean Platelet Volume 10.3 fl (7.5-11.0); Monocyte (Absolute #) 0.41 (0.0-1.3); Monocytes % 6.7 % (0.0-12.0); Neutrophil % 50.1 % (36.0-66.0); Platelet Count 220 K/mm3 (150-450); Red Blood Count 5.23 M/mm3 (4.1-5.6); Red Cell Distribution Width 12.7 % (11.5-14.0); White Blood Count 6.1 K/mm3 (4.0-10.5)
[2019-12-19 23:05] LABS: ALBUMIN 4.3 g/dL (3.5-5.0); ALKALINE PHOSPHATASE 76 U/L (38-126); ANION GAP 10.9 MEQ/L (5-15); BLOOD UREA NITROGEN 20 mg/dL (9-20); CHLORIDE 102 mmol/L (98-107); Calcium 9.8 mg/dL (8.4-10.2); Carbon Dioxide 28 mmol/L (22-30); Creatinine 1 1.29 mg/dL (0.66-1.25); EST GLOMERULAR FILTRATION RATE > 60.0 ML/MIN; Glucose 237 mg/dL (74-106); LIPASE 133 U/L (23-300); Potassium 3.7 mmol/L (3.5-5.1); SGOT/AST 40 U/L (17-59); SGPT/ALT 37 U/L (0-50); SODIUM 137 mmol/L (137-145); Total Protein 7.2 g/dL (6.3-8.2)
[2019-12-20 00:17] VITALS: BP 124/81; PULSE 69; O2SAT 100
--- NOTE | 2019-12-20 07:34 | XRAY ---
Indication: Abdomen pain. Rectal bleeding. Multiple contiguous axial images obtained through the abdomen and pelvis without contrast as ordered. Comparison: None. Lung bases are clear. Heart is not enlarged. Stomach is distended with food/fluid. Noncontrasted stomach and bowel loops appear nonobstructed. Normal appendix. Mild diffuse scattered colonic fecal debris throughout. No free fluid/air. Remaining liver, gallbladder, pancreas, spleen, adrenal glands, kidneys, ureters, bladder, and aorta appear unremarkable for noncontrast exam. Osseous structures intact. Impression: 1. Mild diffuse fecal stasis. 2. Remaining CT abdomen/pelvis without contrast exam is negative. Comment: Preliminary interpretation was made by [facility]. No critical discrepancy.
== END 2019-12-20 00:15 | disposition home or self-care (01) ==
LOC: ED 21:50
DX: K62.5 Hemorrhage of anus and rectum (principal)
CPT/HCPCS: 36415; 74176; 80053; 83605; 83690; 85025; 99283